=== PATIENT | female | born 1995 | race Caucasian/White ===

== ENCOUNTER 2018-09-07 15:08 | Observation (INO) | payer BC ==
--- NOTE | 2018-09-07 15:53 | RAD ---
LEFT KNEE 4 VIEWS: Date: 09/07/18 HISTORY: Injury. COMPARISON: None. FINDINGS: There is a fracture of the lateral tibial plateau with displacement of the lateral fragment laterally . Exam limited due to flexion of the knee. IMPRESSION: Lateral tibial plateau fracture. Recommend repeat examination with normal extension, not flexion. POS: [facility]
[2018-09-07] MEDS ORDERED: HYDROcodone/Acetaminophen 5/325 mg Tablet ONE (15:54)
[2018-09-07 16:30] LABS: #Lymphocytes 1.4 thou/uL (1.20-3.40); #Monocytes 0.9 thou/uL (0.11-0.59); #Neutrophils 10.2 thou/uL (1.40-6.50); %Basophils 0.4 % (0.0-1.0); %Eosinophils 0.4 % (0.0-10.0); %Monocytes 7.5 % (0.0-10.0); %Neutrophils 80.8 % (42.0-75.0); Mean Corpuscular HGB CONC 33.6 g/dL (32.0-36.0); Mean Corpuscular Hemoglobin 30.1 pg (27.0-31.0); Mean Corpuscular Volume 89.5 fL (78.0-98.0); Mean Platelet Volume 7.5 fL (7.4-10.4); Platelet Count 403 thou/uL (130-400); RBC Distribution Width 11.6 % (11.5-14.5); Red Blood Cell (RBC) Count 4.63 mill/uL (4.20-5.40); White Blood Cell (WBC) Count 12.6 thou/uL (4.8-10.8)
[2018-09-07 16:49] LABS: ALT (SGPT) 26 U/L (8-55); AST (SGOT) 20 U/L (5-34); Albumin 4.1 g/dL (3.5-5.0); Alkaline Phosphatase 39 U/L (40-150); Anion Gap 11 mmol/L (10-20); BUN (Urea Nitrogen) 13 mg/dL (7.0-18.7); Bilirubin, Total 0.3 mg/dL (0.2-1.2); Calc. Creatinine Clearance 0 mL/min (70-130); Calcium 9.7 mg/dL (7.8-10.44); Carbon Dioxide 23 mmol/L (22-29); Chloride 107 mmol/L (98-107); Estimated GFR-MDRD Greater than 90; Globulin 3.1 g/dL (2.4-3.5); Glucose 120 mg/dL (70-105); Potassium 3.9 mmol/L (3.5-5.1); Protein, Total 7.2 g/dL (6.0-8.3); Sodium 137 mmol/L (136-145)
[2018-09-07] MEDS ORDERED: Fentanyl 100 MCG/2 ML VIAL ONE (16:51)
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
[2018-09-07] MEDS ORDERED: Ondansetron PF 4 MG/2 ML Vial IVP PRN (18:19)
[2018-09-07] MEDS ORDERED: HYDROcodone/Acetaminophen 10/325 mg Tablet PO PRN (18:19)
[2018-09-07] MEDS ORDERED: Dextrose 50% Abboject 50 ML SYRINGE SLOW IVP PRN (18:19)
[2018-09-07] MEDS ORDERED: Dextrose 5% in Water 1,000 ML IV PRN (18:19)
[2018-09-07] MEDS ORDERED: Morphine 4 MG/ML VIAL ONE (18:48)
[2018-09-07] MEDS ORDERED: Ondansetron PF 4 MG/2 ML Vial ONE (18:48)
[2018-09-07] MEDS ORDERED: Morphine 2 MG/ML SYRINGE SLOW IVP PRN (19:01)
[2018-09-07] MEDS: Acetaminophen 325 MG TAB PO SCH (22:29)
[2018-09-07] MEDS: Famotidine 20 MG TAB PO SCH (22:30)
[2018-09-07] MEDS: Ibuprofen 600 MG TAB PO SCH (22:30)
[2018-09-07] MEDS: traMADol HCl 50 MG TAB PO SCH (22:39)
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
[2018-09-08] MEDS: traMADol HCl 50 MG TAB PO SCH ×4 (02:04→18:06)
[2018-09-08] MEDS: Acetaminophen 325 MG TAB PO SCH ×4 (02:08→18:06)
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
[2018-09-08 05:53] LABS: #Eosinphils 0.2 thou/uL (0.0-0.7); #Lymphocytes 2.2 thou/uL (1.20-3.40); #Neutrophils 5.3 thou/uL (1.40-6.50); %Basophils 0.2 % (0.0-1.0); %Eosinophils 1.8 % (0.0-10.0); %Lymphocytes 25.7 % (21.0-51.0); %Neutrophils 61.3 % (42.0-75.0); Hemoglobin 12.1 g/dL (12.0-16.0); Mean Corpuscular HGB CONC 32.5 g/dL (32.0-36.0); Mean Corpuscular Hemoglobin 29.6 pg (27.0-31.0); Mean Platelet Volume 7.9 fL (7.4-10.4); Platelet Count 372 thou/uL (130-400); RBC Distribution Width 11.8 % (11.5-14.5); White Blood Cell (WBC) Count 8.7 thou/uL (4.8-10.8)
[2018-09-08] MEDS: Ibuprofen 600 MG TAB PO SCH ×3 (05:58→21:17)
[2018-09-08 06:16] LABS: Anion Gap 6 mmol/L (10-20); BUN (Urea Nitrogen) 14 mg/dL (7.0-18.7); Calc. Creatinine Clearance 0 mL/min (70-130); Calcium 8.9 mg/dL (7.8-10.44); Carbon Dioxide 27 mmol/L (22-29); Chloride 110 mmol/L (98-107); Estimated GFR-MDRD Greater than 90; Glucose 109 mg/dL (70-105); Potassium 3.8 mmol/L (3.5-5.1); Sodium 139 mmol/L (136-145)
[2018-09-08] MEDS: Famotidine 20 MG TAB PO SCH ×2 (08:55→21:17)
[2018-09-08] MEDS ORDERED: PROPOFOL 200 MG/20 ML VIAL ONE (10:11)
[2018-09-08] MEDS ORDERED: Ketorolac Tromethamine 30 MG/ML VIAL ONE (10:11)
[2018-09-08] MEDS ORDERED: Lidocaine 1% PF 5 ML VIAL ONE (10:11)
[2018-09-08] MEDS ORDERED: Dexamethasone 20 MG/5 ML VIAL ONE (10:11)
[2018-09-08] MEDS ORDERED: Ondansetron PF 4 MG/2 ML Vial ONE (10:11)
[2018-09-08] MEDS ORDERED: Fentanyl 100 MCG/2 ML VIAL ONE ×4 (10:38→13:50)
[2018-09-08] MEDS ORDERED: CEFAZOLIN 2 GM/50 ML BAG ONE (10:39)
[2018-09-08] MEDS ORDERED: Promethazine HCl 25 MG/ML VIAL SLOW IVP PRN (10:42)
[2018-09-08] MEDS ORDERED: Promethazine HCl 25 MG/ML VIAL IM PRN (10:42)
[2018-09-08] MEDS ORDERED: Ondansetron HCl/PF 4 MG/2 ML Vial IVP PRN (10:42)
[2018-09-08] MEDS ORDERED: Neomycin-Polymyxin 1 ML AMP ONE (11:05)
[2018-09-08] MEDS ORDERED: Bupivacaine HCl 0.5%/Epinephrine 1:200,000/PF 30 ml Vial ONE (11:57)
--- NOTE | 2018-09-08 14:13 | OP ---
DATE OF OPERATION: 09/08/2018. PREOPERATIVE DIAGNOSIS: Displaced comminuted lateral tibial plateau fracture of the left knee. POSTOPERATIVE DIAGNOSIS: Displaced comminuted lateral tibial plateau fracture of the left knee. PROCEDURE PERFORMED: Open reduction and internal fixation of lateral tibial plateau fracture of the left knee. SURGEON: Poli Taylor M.D. ANESTHESIA: General. TECHNIQUE: The patient was given preoperative IV antibiotics, taken to the operating room and placed in the supine position. Satisfactory general anesthesia was performed. The left lower extremity wa s sterilely prepped and draped in usual fashion. After exsanguination, the tourniquet at the proxima l left thigh was raised to 250 mmHg. An incision was made on the anterior proximal aspect of the lef t knee approximately 3-1/2 inches starting just lateral to the metaphysis of the proximal tibia and t hen extending posteriorly along the proximal tibia. The anterior tibialis muscle was periosteally el evated off the anterior lateral aspect of the proximal tibia. The fracture of the tibial plateau was identified. The lateral cortex that was broken was opened. The articular fragments were elevated a nd then allograft cancellous bone graft was packed into the defect. The lateral portion of the tibia l plateau was then placed back in proper position. It was raised into more anatomic position, held i n position with a bone clamp and then initially internally fixed with a 4.5 headless screw. This was all performed under fluoroscopic visualization, which showed a good reduction of the fractures of th e lateral tibial plateau and proper placement of the screw. A 4-hole proximal LCP tibial plate was t hen placed on the anterior lateral aspect of the proximal tibia and initially internally fixed with 3 .5 cortical screw and then 3.5 locking screws proximally and in the metaphysis. This provided good s tability for the fractures and proper placement was also verified with the C-arm. The wound was then copiously irrigated with antibiotic solution and closed using 0 Vicryl for the anterior tibialis mus marlon fascia which covered the plate, 0 Vicryl for the fat and subcutaneous tissue level and a 3-0 Rapi de for the skin. The wound was then infiltrated with 25 mL of 0.5% Marcaine with epinephrine. Steri le dressing was applied along with a knee immobilizer. Tourniquet was released. The patient was francis kened, extubated, and transferred to recovery room in stable condition. ESTIMATED BLOOD LOSS: None. COMPLICATIONS: None. TOURNIQUET TIME: 88 minutes.
--- NOTE | 2018-09-08 14:18 | RAD ---
LEFT TIBIA AND FIBULA 2 VIEWS: Date: 09/08/18 HISTORY: Open reduction and internal fixation. COMPARISON: Knee radiograph prior day. FINDINGS: Satisfactory postoperative fixation. IMPRESSION: Satisfactory postoperative fixation. POS: [facility]
[2018-09-08 16:41] VITALS: BMI 22.1
[2018-09-08] MEDS ORDERED: traMADol HCl 50 MG TAB PO PRN (16:42)
[2018-09-08] MEDS ORDERED: HYDROcodone/Acetaminophen 10/325 mg Tablet PO PRN (16:43)
[2018-09-08] MEDS ORDERED: Ondansetron PF 4 MG/2 ML Vial SLOW IVP PRN (16:44)
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
[2018-09-08] MEDS: CEFAZOLIN 2 GM/50 ML-DEXTROSE 2 GM in Premix Bag 1 BAG IVPB SCH (18:06)
[2018-09-08] MEDS: traMADol HCl 50 MG TAB PO PRN (19:45)
[2018-09-08] MEDS: HYDROcodone/Acetaminophen 7.5/325 mg Tablet PO PRN (23:03)
[2018-09-09] MEDS: CEFAZOLIN 2 GM/50 ML-DEXTROSE 2 GM in Premix Bag 1 BAG IVPB SCH (01:51)
[2018-09-09] MEDS: Acetaminophen 325 MG TAB PO SCH ×2 (01:52→08:51)
[2018-09-09] MEDS: traMADol HCl 50 MG TAB PO PRN ×2 (01:52→08:52)
[2018-09-09] MEDS: traMADol HCl 50 MG TAB PO SCH ×2 (01:52→08:52)
[2018-09-09 02:19] VITALS: BP 98/50; TEMP 98.6
[2018-09-09 05:36] LABS: #Eosinphils 0.1 thou/uL (0.0-0.7); #Monocytes 0.8 thou/uL (0.11-0.59); #Neutrophils 5.7 thou/uL (1.40-6.50); %Basophils 0.3 % (0.0-1.0); %Eosinophils 0.7 % (0.0-10.0); %Lymphocytes 23.4 % (21.0-51.0); %Monocytes 9.7 % (0.0-10.0); %Neutrophils 65.9 % (42.0-75.0); Hemoglobin 10.7 g/dL (12.0-16.0); Mean Corpuscular HGB CONC 31.4 g/dL (32.0-36.0); Mean Corpuscular Hemoglobin 28.9 pg (27.0-31.0); Mean Platelet Volume 7.9 fL (7.4-10.4); Platelet Count 342 thou/uL (130-400); RBC Distribution Width 11.7 % (11.5-14.5); White Blood Cell (WBC) Count 8.7 thou/uL (4.8-10.8)
[2018-09-09] MEDS: Ibuprofen 600 MG TAB PO SCH (05:44)
[2018-09-09] MEDS ORDERED: Ferrous Sulfate 325 MG TAB PO SCH (08:00)
[2018-09-09] MEDS: Famotidine 20 MG TAB PO SCH (08:53)
[2018-09-09] MEDS ORDERED: Ascorbic Acid 500 mg Chewable Tablet PO SCH (09:00)
[2018-09-09] MEDS: HYDROcodone/Acetaminophen 7.5/325 mg Tablet PO PRN (10:11)
[2018-09-09] MEDS ORDERED: HYDROcodone/Acetaminophen 10/325 mg Tablet PO SCH (11:30)
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
--- NOTE | 2018-09-09 16:58 | DIS ---
DATE OF ADMISSION: 09/07/2018 DATE OF DISCHARGE: 09/09/2018 HISTORY OF PRESENT ILLNESS: Please see admission history and physical. HOSPITAL COURSE: The patient was initially evaluated in the emergency room. She had x-ray of the le ft knee, which showed a severely displaced, impacted lateral tibial plateau fracture of the left knee . The patient was worked up medically, found to be stable for surgery. The following day, the patie nt had perioperative IV antibiotics and underwent open reduction internal fixation of the lateral tib ial plateau fracture of the left knee using plate and screws and bone graft. The following day, the patient was independent and very stable with crutches. She is nonweightbearing on the left lower ext remity. She had knee immobilizer to protect the knee and was able to control the pain with p.o. pain medicine. She was therefore able to be discharged. The left lower extremity remained neurovascular ly intact during the hospital course. DISCHARGE DIAGNOSES: Severely displaced and depressed lateral tibial plateau fracture, left knee. DISCHARGE MEDICATIONS: Coulter 10 one every 6 hours as needed for pain, #60; tramadol 50 mg 1-2 every 6 hours as needed for pain, #60 with 1 refill. The patient was reminded several times she needs to be nonweightbearing on the left lower extremity. This will probably need to continue for 3 months. My plan was for her to wear the knee immobilizer for about a month, after which put her in a hinged knee brace and allow her to work on range of motio n, but continue to be nonweightbearing for a total of 3 months. The patient is from [place] and is go ing to go back there, but she , so when she is able to, she is going to be heading back to [facility].
== END 2018-09-09 12:07 | disposition home or self-care (01) ==
LOC: ERS 15:08 → 3SE 18:19
PROVIDERS: ADMIT Surgery; ATTEND Surgery
PROC: 0QSH04Z Reposition Left Tibia with Internal Fixation Device, Open Approach (ICD-10-PCS; principal; 2018-09-08)
DX: S82.122A Displaced fracture of lateral condyle of left tibia, initial encounter for closed fracture (principal); V29.9XXA Motorcycle rider (driver) (passenger) injured in unspecified traffic accident, initial encounter
CPT/HCPCS: 36415; 76001; 80048; 80053; 85025; 90471; 90686; 96361; 96365; 96374; 96375; 96376; C1713; C1769; G0008; G0378; G8978-GP-CI; G8979-GP-CI; G8980-GP-CI; J0670; J1100; J1885; J2001; J2270; J2405; J2704; J3010